=== PATIENT | female | born 1965 | race Two or more races ===

== ENCOUNTER 2022-09-06 20:49 | Emergency (ER) | payer OTHER ==
[~2022-09-06] VITALS: Ht 167.6 cm; Wt 111.1 kg
[2022-09-06] MEDS ORDERED: CHILDREN'S ASPI81 MG PO (21:20)
[2022-09-06] MEDS ORDERED: GLUMETZA1000 MG PO (21:21)
[2022-09-06] MEDS ORDERED: IRBESARTAN-HCT1 EACH PO (21:23)
== END 2022-09-06 23:09 | disposition home or self-care (01) ==
LOC: ER 20:49
DX: S90.512A Abrasion, left ankle, initial encounter (principal); W26.8XXA Contact with other sharp object(s), not elsewhere classified, initial encounter; Y93.E1 Activity, personal bathing and showering; Y92.091 Bathroom in other non-institutional residence as the place of occurrence of the external cause